=== PATIENT | male | born 1955 | race Caucasian/White ===

== ENCOUNTER 2019-03-16 15:36 | Emergency (ER) | payer OTHER ==
[~2019-03-16] VITALS: Ht 182.9 cm; Wt 99.8 kg
[~2019-03-16 15:36] MED LIST: IBUPROFEN 200200 M1 PO; NEURONTIN 300300 M1 PO; NORCO 7.5-3251 EACH PO; PERCOCET 5-3251 EACH PO; RELAFEN750 MG PO; ZOCOR PO
[2019-03-16] MEDS ORDERED: NEXIUM20 MG PO (15:51)
[2019-03-16] MEDS ORDERED: ZESTORETIC 20-1 EACH PO (16:55)
[2019-03-16 17:05] VITALS: BP 174/108
== END 2019-03-16 17:07 | disposition home or self-care (01) ==
LOC: M.ERS 15:36
DX: I10 Essential (primary) hypertension (principal); K21.9 Gastro-esophageal reflux disease without esophagitis